=== PATIENT | female | born 1995 | race Caucasian/White ===

== ENCOUNTER 2025-02-15 14:22 | Emergency (ER) | payer SELFPAY ==
[~2025-02-15] VITALS: Ht 167.6 cm; Wt 57.2 kg
[2025-02-15 14:35] VITALS: PULSE 67; RESP 16; TEMP 98.6; O2SAT 100
[2025-02-15] MEDS ORDERED: MUPIROCIN 2% OINT 22 GM TUBE ONE (14:43)
[2025-02-15] MEDS: MUPIROCIN 2% OINT 22 GM TUBE TOP ONE (14:47)
== END 2025-02-15 14:49 | disposition home or self-care (01) ==
LOC: ER 14:26
DX: Z48.01 Encounter for change or removal of surgical wound dressing (principal)
CPT/HCPCS: 99282

== ENCOUNTER 2025-02-19 07:09 | Emergency (ER) | payer SELFPAY ==
[~2025-02-19] VITALS: Ht 167.6 cm; Wt 52.6 kg
[2025-02-19 07:23] VITALS: PULSE 70; RESP 18; TEMP 97.9; O2SAT 100
== END 2025-02-19 08:01 | disposition home or self-care (01) ==
LOC: ER 07:18
DX: Z48.02 Encounter for removal of sutures (principal)
CPT/HCPCS: 99282